=== PATIENT | female | born 1985 | race Caucasian/White ===

== ENCOUNTER 2022-08-15 10:41 | Emergency (ER) | payer OTHER, SELFPAY ==
[2022-08-15 10:53] VITALS: BP 113/67; PULSE 70; RESP 16; TEMP 36.8; O2SAT 100
--- NOTE | 2022-08-15 11:07 | ED.GENADULT ---
HPI - General Adult General Chief complaint: Upper Respiratory Infection Stated complaint: Sore Throat,Bilateral Ear Irritation,Headache Time Seen by Provider: 08/15/22 11:07 Source: patient Mode of arrival: ambulatory Limitations: no limitations History of Present Illness HPI narrative: 37-year-old female patient presents to the [facility] with complaints of sore throat that started this morning she woke up. Patient states that she has had strep throat or half a dose to a rash she strep throat. Patient denies any rash today. 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 Patient denies any fevers, body aches or chills. Denies any shortness of breath, chest pain, abdominal pain, nausea, vomiting or diarrhea. Patient states she has taken some Tylenol for her symptoms. Related Data Home Medications Medication Instructions Recorded Confirmed No Home Medications 08/15/22 08/15/22 Allergies Allergy/AdvReac Type Severity Reaction Status Date / Time benzoyl peroxide AdvReac Mild RASH Verified 08/15/22 10:52 miconazole AdvReac Mild RASH Verified 08/15/22 10:52 Review of Systems Review of Systems: CONSTITUTIONAL: Denies fever, chills, or sweats. EYES: Denies visual changes, redness, or discharge. ENT: Denies rhinorrhea, congestion, Positivesore throat, or otalgia. CARDIOVASCULAR: Denies chest pain, palpitations, or edema. RESPIRATORY: Denies cough or dyspnea. GASTROINTESTINAL: Denies abdominal pain, nausea, vomiting, or diarrhea. GENITOURINARY: Denies dysuria or hematuria. SKIN: Denies rash or itching. MUSCULOSKELETAL: Denies back pain, joint pain, or myalgia. NEUROLOGIC: Denies headache, numbness, or weakness. PSYCHIATRIC: Denies anxiety or depression. [facility] Past Medical History Medical History (Updated 08/15/22 @ 11:13 by LUCIANA Albarran) Gestational diabetes No significant past medical history Surgical History Surgical History No significant past surgical history Family History Family History Grandparent Family history of elevated blood lipids Carcinoma of colon Diabetes mellitus Mother Family history of elevated blood lipids Social History Social History Smoking status: Never smoker Second hand tobacco smoke exposure: No Alcohol intake: current Comments At the time of my signature I agree with nursing past medical history, surgical, social, and family history. There is no relevant family history pertinent to the presenting complaint. Exam Narrative: GENERAL: Well-appearing, well-nourished, and in no acute distress. HEAD: Normocephalic, atraumatic. EYES: PERRLA and EOMI. ENT: Nares with erythema edema noted bilaterally, no rhinorrhea or epistaxis. Mucous membranes moist. bilateral TMs do appear slightly cloudy. Posterior pharynx with 1+ tonsil enlargement slight erythema. There is a tonsil stone noted to the right tonsil on visualization. NECK: Supple. No lymphadenopathy CHEST: Clear to auscultation. No respiratory distress. HEART: Regular rate and rhythm. No murmur heard. Normal peripheral pulses. ABDOMEN: Soft, nontender, nondistended, normal active bowel sounds. EXTREMITIES: Normal range of motion. No edema. SKIN: Warm, dry, no rash. NEURO: No focal deficits. Alert and oriented x3. Course Course Level of Care: Express Care Visit Vital Signs Vital signs: Vital Signs Temperature 36.8 C 08/15/22 10:53 Pulse Rate 70 08/15/22 10:53 Respiratory Rate 16 08/15/22 10:53 Blood Pressure 113/67 08/15/22 10:53 Pulse Oximetry 100 08/15/22 10:53 Oxygen Delivery Room Air 08/15/22 10:53 Temperature 36.8 C 08/15/22 10:53 Pulse Rate 70 08/15/22 10:53 Respiratory Rate 16 08/15/22 10:53 Blood Pressure 113/67 08/15/22 10:53 Pulse Oximetry 100 12
== END 2022-08-15 11:18 | disposition home or self-care (01) ==
PROVIDERS: Emergency Provider Nurse Practitioner Family; PCP Family Medicine
DX: J02.0 Streptococcal pharyngitis (principal); J35.8 Other chronic diseases of tonsils and adenoids
CPT/HCPCS: 87081; 87147; 99212; G0463

== ENCOUNTER 2024-04-25 07:54 | Outpatient (CLI) | payer OTHER, SELFPAY ==
--- NOTE | ~2024-04-25 | MM_ITS ---
EXAMINATION: MM screening [facility] BI w shanna HISTORY: Screening TECHNIQUE: Craniocaudal and mediolateral oblique 3-D tomosynthesis images were obtained and synthetic 2-D images were generated. CAD analysis was submitted and interpreted. COMPARISON: No prior studies for comparison. BREAST PARENCHYMAL COMPOSITION: Dense: The breasts are extremely dense, which lowers the sensitivity of mammography. FINDINGS: There is a small mass upper central aspect of the right breast, middle third. No evidence f or malignancy in the right breast. IMPRESSION: 1. Small 4 mm right breast mass upper central aspect of the right breast, middle third. 2. Additional mammographic views and possible breast ultrasound are recommended. BI-RADS Category 0: Incomplete: Needs additional imaging evaluation. Reviewed, dictated and finalized at location B. IMPRESSION: 1. Small 4 mm right breast mass upper central aspect of the right breast, middl e third. 2. Additional mammographic views and possible breast ultrasound are recommended . BI-RADS Category 0: Incomplete: Needs additional imaging evaluation.
== END 2024-04-25 07:55 ==
LOC: MICIMG 07:54
PROVIDERS: PCP Family Medicine; Visit Provider Surgery
DX: Z12.31 Encounter for screening mammogram for malignant neoplasm of breast (principal); N63.15 Unspecified lump in the right breast, overlapping quadrants; Z80.3 Family history of malignant neoplasm of breast
CPT/HCPCS: 77063; 77067

== ENCOUNTER 2024-06-11 08:31 | Outpatient (CLI) | payer OTHER, SELFPAY ==
--- NOTE | ~2024-06-11 | MMUS_ITS ---
EXAMINATION: US breast RT complete, MM diagnostic brent RT w shanna HISTORY: Abnormal right mammogram TECHNIQUE: Additional 3-D tomosynthesis images of the right breast were performed and synthetic 2-D i mages were generated. CAD analysis was submitted and interpreted. High resolution complete right medhat st ultrasound was performed. COMPARISON: 04/25/2024 BREAST PARENCHYMAL COMPOSITION: Dense: The breasts are extremely dense, which lowers the sensitivity of mammography. FINDINGS: MAMMOGRAPHIC FINDINGS: There are no suspicious masses, calcifications or architectural distortion in the right breast to sug gest malignancy. ULTRASOUND: Complete US of all 4 quadrants of the breast/s and retroareolar region was reviewed. There are small cysts in the right breast at 1:00, 5 cm from the nipple measuring 1 cm and at 7:00, 8 cm from the nip ple measuring 3 mm. No suspicious sonographic abnormalities to suggest malignancy. IMPRESSION: 1. No evidence for malignancy in the right breast. Benign findings. 2. Routine yearly screening mammogram and regular clinical breast examination are recommended. BI-RADS Category 2: Benign finding(s). Reviewed, dictated and finalized at location B. IMPRESSION: 1. No evidence for malignancy in the right breast. Benign findings. 2. Routine yearly screening mammogram and regular clinical breast examination a re recommended. BI-RADS Category 2: Benign finding(s).
== END 2024-06-11 08:32 | disposition home or self-care (01) ==
LOC: MICIMG 08:31
PROVIDERS: PCP Family Medicine; Visit Provider Surgery
DX: N63.10 Unspecified lump in the right breast, unspecified quadrant (principal); R92.8 Other abnormal and inconclusive findings on diagnostic imaging of breast
CPT/HCPCS: 76641; 77061; 77065; G0279